=== PATIENT | female | born 1980 | race Two or more races ===

== ENCOUNTER 2024-11-03 10:53 | Emergency (ER) | payer MEDICAID ==
[~2024-11-03] VITALS: Ht 167.6 cm; Wt 86.2 kg
[2024-11-03] MEDS ORDERED: IBUPROFEN 600 MG TABLET ONE (13:35)
[2024-11-03] MEDS: IBUPROFEN 600 MG TABLET PO ONE (13:41)
[2024-11-03 14:08] VITALS: BP 100/76; TEMP 98; O2SAT 96
== END 2024-11-03 14:09 | disposition home or self-care (01) ==
LOC: ER 10:53
DX: B34.9 Viral infection, unspecified (principal); F17.200 Nicotine dependence, unspecified, uncomplicated; R05.9 Cough, unspecified; R51.9 Headache, unspecified; R09.81 Nasal congestion; Z20.822 Contact with and (suspected) exposure to COVID-19
CPT/HCPCS: 71045-TC

== ENCOUNTER 2025-06-26 15:54 | Emergency (ER) | payer MEDICAID ==
[~2025-06-26] VITALS: Ht 167.6 cm; Wt 84.8 kg
[2025-06-26 16:02] VITALS: BP 116/65; TEMP 97.9
[2025-06-26] MEDS ORDERED: IBUPROFEN 600 MG TABLET ONE (17:20)
[2025-06-26] MEDS: IBUPROFEN 600 MG TABLET PO ONE (17:23)
[2025-06-26 19:02] VITALS: O2SAT 100
== END 2025-06-26 19:03 | disposition home or self-care (01) ==
LOC: ER 15:59
DX: I83.891 Varicose veins of right lower extremity with other complications (principal); F17.200 Nicotine dependence, unspecified, uncomplicated; M79.604 Pain in right leg; M79.605 Pain in left leg
CPT/HCPCS: 93970-TC